=== PATIENT | male | born 1930 | race Caucasian/White ===

== ENCOUNTER 2020-07-17 08:38 | Emergency (ER) | payer OTHER, MEDICARE ==
[2020-07-17] MEDS ORDERED: SODIUM CHLORIDE 0.9% 1,000 ML IV STA (09:03)
--- NOTE | 2020-07-17 09:06 | ED ---
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 He states he did pass out briefly was helped out by a family member. He currently feels back to normal he was brought in by EMS. He denies any headache dizziness fevers chills nausea vomiting sweats or other symptoms. He apparently did hit his head on a toilet when he did pass out he denies any headache. Patient does state that he had not eaten breakfast yet R to this episode. MD Complaint: other - Related Data Home Medications Medication Instructions Recorded Confirmed Aspirin EC [Ecotrin Low Dose] 81 mg PO DAILY 07/17/20 07/17/20 Atorvastatin [Lipitor] 20 mg PO HS 07/17/20 07/17/20 Carboxymethylcellulose Sodium 1 drop BOTH EYES BID 07/17/20 07/17/20 [Refresh Tears] Ferrous Sulfate [Iron] 325 mg PO DAILY 07/17/20 07/17/20 Hydroxyurea 500 mg PO BID 07/17/20 07/17/20 Multivitamins, Thera [Multivitamin 1 tab PO DAILY 07/17/20 07/17/20 (formulary)] Allergies Allergy/AdvReac Type Severity Reaction Status Date / Time No Known Allergies Allergy Verified 07/17/20 09:57 Review of Systems ROS Statement: Those systems with pertinent positive or pertinent negative responses have been documented in the HPI. ROS Other: All systems not noted in ROS Statement are negative. Past Medical History Past Medical History: CVA/TIA, Hypertension Additional Past Medical History / Comment(s): left sided deficit History of Any Multi-Drug Resistant Organisms: None Reported Past Surgical History: No Surgical Hx Reported Past Psychological History: No Psychological Hx Reported Smoking Status: Never smoker Past Alcohol Use History: None Reported Past Drug Use History: None Reported General Exam - General Exam Comments Initial Comments: This is a well-developed well-nourished awake alert oriented 3 male he does physical Rebecca Coma Scale of 15 Limitations: physical limitation General appearance: alert, in no apparent distress Head exam: Present: normocephalic, normal inspection, other (Superficial abrasion seen to the left upper forehead no step-off no crepitation no foreign body no active bleeding) Eye exam: Present: normal appearance, PERRL, EOMI. Absent: scleral icterus, conjunctival injection, periorbital swelling ENT exam: Present: normal exam, mucous membranes moist Neck exam: Present: normal inspection. Absent: tenderness, meningismus, lymphadenopathy Respiratory exam: Present: normal lung sounds bilaterally. Absent: respiratory distress, wheezes, rales, rhonchi, stridor Cardiovascular Exam: Present: regular rate, normal rhythm, normal heart sounds. Absent: systolic murmur, diastolic murmur, rubs, gallop, clicks GI/Abdominal exam: Present: soft, normal bowel sounds. Absent: distended, tenderness, guarding, rebound, rigid Extremities exam: Present: normal capillary refill, other (Left upper extremity weakness with). Absent: tenderness, pedal edema, joint swelling, calf tenderness Back exam: Present: normal inspection Neurological exam: Present: alert, oriented X3, CN II-XII intact, motor sensory deficit (Left upper extremity as stated above) Psychiatric exam: Present: normal affect, normal mood Skin exam: Present: warm, dry, intact, normal color. Absent: rash Course Vital Signs 07/17/20 07/17/20 07/17/20 08:41 09:24 09:25 Temperature 98.3 F Pulse Rate 67 Pulse Rate [ 65 79 Pulse Oximetery ] Respiratory 18 18 18 Rate Blood Pressure 133/60 Blood Pressure 124/61 [Left Arm Sitting] Blood Pressure 140/68 [Left Arm Standing] Blood Pressure 126/59 [Left Arm Supine] O2 Sat by Pulse 97 99 Oximetry 07/17/20 07/17/20 10:35 12:05 Temperature 97.5 F L Pulse Rate 61 79 Pulse Rate [ Pulse Oximetery ] Respiratory 18 19 Rate Blood Pressure 142/71 175/85 Blood Pressure [Left Arm Sitting] Blood Pressure [Left Arm Standing] Blood Pressure [Left Arm Supine] O2 Sat by Pulse 100 99 Oximetry EKG Findings - EKG Results: EKG: interpreted by EDSON, sinus rhythm (Sinus rhythm with occasional PVCs rate 64. Interval 182 QRS 100 QT since QTC 380/392) Medical Decision Making - Medical Decision Making Patient reevaluated on multiple occasions he is feeling improved he clinical reason patient is consistent with orthostatic event and dehydration. CTs of the brain were negative. CT for PE rule out nothing in the upper lobes poor study for the lower lobes of the patient does have a low probability. We did discuss his he will be discharged - Lab Data Result diagrams: 07/17/20 09:10 07/17/20 09:10 Lab Results 07/17/20 07/17/20 07/17/20 Range/Units 09:10 09:10 09:10 WBC 5.8 (3.8-10.6) k/uL RBC 2.56 L (4.30-5.90) m/uL Hgb 11.3 L (13.0-17.5) gm/dL Hct 33.5 L (39.0-53.0) % MCV 131.0 H (80.0-100.0) fL MCH 44.3 H (25.0-35.0) pg MCHC 33.8 (31.0-37.0) g/dL RDW 13.2 (11.5-15.5) % Plt Count 342 (150-450) k/uL MPV 7.1 Neutrophils % 66 % Lymphocytes % 23 % Monocytes % 6 % Eosinophils % 2 % Basophils % 1 % Neutrophils # 3.8 (1.3-7.7) k/uL Lymphocytes # 1.3 (1.0-4.8) k/uL Monocytes # 0.4 (0-1.0) k/uL Eosinophils # 0.1 (0-0.7) k/uL Basophils # 0.1 (0-0.2) k/uL Manual Slide Review Performed Polychromasia Present Hypochromasia (manual) Present Anisocytosis (manual) Present Macrocytosis Marked A Stomatocytes Present PT 10.0 (9.0-12.0) sec INR 1.0 (<1.2) APTT 20.1 L (22.0-30.0) sec D-Dimer 0.97 H (<0.60) mg/L FEU Sodium 135 L (137-145) mmol/L Potassium 4.2 (3.5-5.1) mmol/L Chloride 103 (98-107) mmol/L Carbon Dioxide 28 (22-30) mmol/L Anion Gap 4 mmol/L BUN 17 (9-20) mg/dL Creatinine 0.87 (0.66-1.25) mg/dL Est GFR (CKD-EPI)AfAm 89 (>60 ml/min/1.73 sqM) Est GFR (CKD-EPI)NonAf 77 (>60 ml/min/1.73 sqM) Glucose 143 H (74-99) mg/dL Calcium 9.6 (8.4-10.2) mg/dL Magnesium 2.1 (1.6-2.3) mg/dL Total Bilirubin 0.8 (0.2-1.3) mg/dL AST 26 (17-59) U/L ALT 16 (4-49) U/L Alkaline Phosphatase 64 (38-126) U/L Creatine Kinase 42 L (55-170) U/L Troponin I (0.000-0.034) ng/mL Total Protein 6.1 L (6.3-8.2) g/dL Albumin 3.7 (3.5-5.0) g/dL Urine Color Urine Appearance (Clear) Urine pH (5.0-8.0) Ur Specific [place] (1.001-1.035) Urine Protein (Negative) Urine Glucose (UA) (Negative) Urine Ketones (Negative) Urine Blood (Negative) Urine Nitrite (Negative) Urine Bilirubin (Negative) Urine Urobilinogen (<2.0) mg/dL Ur Leukocyte Esterase (Negative) Urine RBC (0-5) /hpf Urine WBC (0-5) /hpf Ur Squamous Epith Cells (0-4) /hpf Hyaline Casts (0-2) /lpf Urine Mucus (None) /hpf 07/17/20 07/17/20 Range/Units 09:10 09:22 WBC (3.8-10.6) k/uL RBC (4.30-5.90) m/uL Hgb (13.0-17.5) gm/dL Hct (39.0-53.0) % MCV (80.0-100.0) fL MCH (25.0-35.0) pg MCHC (31.0-37.0) g/dL RDW (11.5-15.5) % Plt Count (150-450) k/uL MPV Neutrophils % % Lymphocytes % % Monocytes % % Eosinophils % % Basophils % % Neutrophils # (1.3-7.7) k/uL Lymphocytes # (1.0-4.8) k/uL Monocytes # (0-1.0) k/uL Eosinophils # (0-0.7) k/uL Basophils # (0-0.2) k/uL Manual Slide Review Polychromasia Hypochromasia (manual) Anisocytosis (manual) Macrocytosis Stomatocytes PT (9.0-12.0) sec INR (<1.2) APTT (22.0-30.0) sec D-Dimer (<0.60) mg/L FEU Sodium (137-145) mmol/L Potassium (3.5-5.1) mmol/L Chloride (98-107) mmol/L Carbon Dioxide (22-30) mmol/L Anion Gap mmol/L BUN (9-20) mg/dL Creatinine (0.66-1.25) mg/dL Est GFR (CKD-EPI)AfAm (>60 ml/min/1.73 sqM) Est GFR (CKD-EPI)NonAf (>60 ml/min/1.73 sqM) Glucose (74-99) mg/dL Calcium (8.4-10.2) mg/dL Magnesium (1.6-2.3) mg/dL Total Bilirubin (0.2-1.3) mg/dL AST (17-59) U/L ALT (4-49) U/L Alkaline Phosphatase (38-126) U/L Creatine Kinase (55-170) U/L Troponin I <0.012 (0.000-0.034) ng/mL Total Protein (6.3-8.2) g/dL Albumin (3.5-5.0) g/dL Urine Color Yellow Urine Appearance Clear (Clear) Urine pH 6.0 (5.0-8.0) Ur Specific [place] 1.018 (1.001-1.035) Urine Protein Trace H (Negative) Urine Glucose (UA) Negative (Negative) Urine Ketones Negative (Negative) Urine Blood Negative (Negative) Urine Nitrite Negative (Negative) Urine Bilirubin Negative (Negative) Urine Urobilinogen <2.0 (<2.0) mg/dL Ur Leukocyte Esterase Trace H (Negative) Urine RBC 2 (0-5) /hpf Urine WBC 3 (0-5) /hpf Ur Squamous Epith Cells <1 (0-4) /hpf Hyaline Casts 14 H (0-2) /lpf Urine Mucus Many H (None) /hpf - Radiology Data Radiology results: report reviewed (I did review the imaging and report no acute findings the CT was not optimal of the upper lobes show no evidence of PE), image reviewed Disposition Clinical Impression: Syncope due to orthostatic hypotension, Vasovagal syncope, Dehydration, Facial abrasion Disposition: HOME SELF-CARE Condition: Good Instructions (If sedation given, give patient instructions): Abrasion (ED), Dehydration (ED), Syncope (DC), Syncope in Older Adults (ED) Is patient prescribed a controlled substance at d/c from ED?: No Referrals: Nonstaff,Physician [Primary Care Provider] - 1-2 days
[2020-07-17 09:23] LABS: Basophils # (A) 0.1 k/uL (0-0.2); Basophils % (A) 1 %; Eosinophils # (A) 0.1 k/uL (0-0.7); Eosinophils % (A) 2 %; HCT 33.5 % (39.0-53.0); HGB 11.3 gm/dL (13.0-17.5); Lymphocytes # (A) 1.3 k/uL (1.0-4.8); Lymphocytes % (A) 23 %; MCHC 33.8 g/dL (31.0-37.0); Macrocytosis Marked; Mean Platelet Volume 7.1; Monocytes # (A) 0.4 k/uL (0-1.0); Monocytes % (A) 6 %; Neutrophils # (A) 3.8 k/uL (1.3-7.7); Neutrophils % (A) 66 %; Platelet Count 342 k/uL (150-450); RBC 2.56 m/uL (4.30-5.90); RDW 13.2 % (11.5-15.5); WBC 5.8 k/uL (3.8-10.6)
[2020-07-17 09:31] LABS: MCH 44.3 pg (25.0-35.0)
[2020-07-17 09:34] LABS: Albumin 3.7 g/dL (3.5-5.0); Calcium 9.6 mg/dL (8.4-10.2); Magnesium 2.1 mg/dL (1.6-2.3); Potassium 4.2 mmol/L (3.5-5.1); Total Bilirubin 0.8 mg/dL (0.2-1.3); Total Protein 6.1 g/dL (6.3-8.2)
[2020-07-17 09:35] LABS: Appearance,Urine Clear (Clear); Bilirubin,Urine Negative (Negative); Blood,Urine Negative (Negative); Color,Urine Yellow; Glucose,Urine (UA) Negative (Negative); Hyaline Casts,Urine 14 /lpf (0-2); Ketones,Urine Negative (Negative); Leukocyte Esterase,Urine Trace (Negative); Mucus,Urine Many /hpf; Nitrite,Urine Negative (Negative); Protein,Urine Trace (Negative); RBC,Urine 2 /hpf (0-5); Specific Gravity,Urine 1.018 (1.001-1.035); Squamous Epithelial Cell,Urine <1 /hpf (0-4); Urobilinogen,Urine <2.0 mg/dL (<2.0); WBC,Urine 3 /hpf (0-5)
--- NOTE | 2020-07-17 09:50 | XR ---
EXAMINATION TYPE: XR chest 2V DATE OF EXAM: 07/17/2020 COMPARISON: None HISTORY: 89-year-old male with syncope TECHNIQUE: AP and lateral views FINDINGS: Heart upper limits of normal in size. Mild atherosclerotic arch calcifications. The mild patchy opaci ty in the periphery of the lungs likely atelectasis. No pleural effusion on the lateral view. Large a ppearance to the right main pulmonary artery on the lateral view. Otherwise, no consolidation or pleu ral effusion. Mild hyperinflation. IMPRESSION: Correlate for underlying COPD. Suspected pulmonary arterial hypertension. No definite acute process.
[2020-07-17 09:54] LABS: Partial Thromboplastin Time 20.1 sec (22.0-30.0)
[2020-07-17 10:05] LABS: D-Dimer 0.97 mg/L FEU (<0.60)
[2020-07-17 10:15] LABS: Anisocytosis (M) Present; Hypochromasia (M) Present; Polychromasia Present; Stomatocytes Present
--- NOTE | 2020-07-17 10:26 | CT ---
EXAMINATION TYPE: CT brain wo con DATE OF EXAM: 07/17/2020 COMPARISON: None HISTORY: 89-year-old male syncope, confusion TECHNIQUE: Examination was done in axial plane without intravenous contrast. Coronal and sagittal r econstructions performed. CT DLP: 1169.4 mGycm Automated exposure control for dose reduction was used. FINDINGS: Extensive encephalomalacia throughout the right parietal lobe and right frontoparietal junction super iorly. Moderate patchy white matter hypodensities in the periventricular regions. Old lacunar infarct right basal ganglia. Asymmetric enlargement of the right lateral ventricle secondary to volume loss. Some dystrophic calcification right parietal convexity. No evidence for acute intracranial hemorrhage, mass, mass effect, midline shift, or extra-axial fluid collection. No effacement of cerebral sulci or basal subarachnoid cisterns. Paranasal sinuses and mastoid air cells are well pneumatized. Orbits and globes are intact. IMPRESSION: Extensive old infarct with septal malacia right parietal lobe and right frontoparietal junction. Enrique esponding volume loss and asymmetric ex vacuo enlargement of the right lateral ventricle. No acute in tracranial abnormality seen. If concern for subtle acute ischemia, MRI can be considered.
--- NOTE | 2020-07-17 11:22 | CT ---
EXAMINATION TYPE: CT angio chest DATE OF EXAM: 07/17/2020 COMPARISON: Radiographs 07/17/2020 HISTORY: 89-year-old male PE suspected, intermediate probability, positive d-dimer, shortness of eben th TECHNIQUE: Contiguous axial scanning of the chest performed without and with IV Contrast, patient inj ected with 100 ml mL of Isovue 370. Coronal/sagittal MIP reconstructions performed. CT DLP: 279.2 mGycm Automated exposure control for dose reduction was used. FINDINGS: Heart is upper limits of normal in size without pericardial effusion. Ectatic aortic root at 3.8 cm. Ectatic ascending aorta 3.7 cm. Conventional branching anatomy. Large caliber to the main right and the pulmonary arteries measuring up to 3.2 cm compatible with und erlying pulmonary arterial hypertension. Satisfactory opacification of the pulmonary arterial system with prominent breathing motion especially in the lower lungs. This limits the lower lung segmental a nd more distal arterial branches. No evidence for pulmonary embolus in the upper midlungs. No thoracic lymphadenopathy by CT size criteria. Mild bilateral gynecomastia. Mild dependent atelectasis. Excessive breathing motion on the lower lungs limiting assessment for sma ll pulmonary nodules. A couple small calcified pleural plaques may reflect prior asbestos exposure. No consolidation or ple ural effusion. Mild diffuse thickening of the bilateral adrenal glands without discrete nodularity. Suspect tiny ant erior splenule, partially visualized. Bones: There are mild to moderate degenerative disc disease and thoracic spine. Degenerative changes at the right sternoclavicular joint. IMPRESSION: 1. BREATHING MOTION DEGRADING ASSESSMENT FOR PULMONARY EMBOLUS IN THE LOWER LUNGS. UNABLE TO ASSESS F OR EMBOLI HERE. NO EVIDENCE FOR PULMONARY EMBOLUS IN THE UPPER OR MID LUNGS. 2. PULMONARY ARTERIAL HYPERTENSION. CORRELATE TO ETIOLOGY.
[2020-07-17 12:06] VITALS: BP 175/85; PULSE 79; RESP 19; TEMP 97.5
== END 2020-07-17 12:30 | disposition home or self-care (01) ==
LOC: EC 08:38
DX: I95.1 Orthostatic hypotension (principal); S00.81XA Abrasion of other part of head, initial encounter; E86.0 Dehydration; I69.354 Hemiplegia and hemiparesis following cerebral infarction affecting left non-dominant side; I10 Essential (primary) hypertension; Z79.82 Long term (current) use of aspirin; Z79.899 Other long term (current) drug therapy; W18.39XA Other fall on same level, initial encounter; Y93.E1 Activity, personal bathing and showering
CPT/HCPCS: 36415; 93005; 85379; 80053; 82550; 83735; 84484; 85025; 85610; 85730; 81001; 71046; 70450; 71275; 99285; 96360; Q9967